=== PATIENT | female | born 1970 | race Caucasian/White ===

== ENCOUNTER → 2017-01-16 | Outpatient (CLI) | payer BC ==
[~2017-01-16] MED LIST: BCPILLS PO
--- NOTE | 2017-01-16 13:42 | MAMMOGRAPHY REPORT ---
BILATERAL DIGITAL SCREENING MAMMOGRAM TOMOSYNTHESIS WITH CAD: 01/16/2017 CLINICAL HISTORY: Routine screening. Patient has no complaints. TECHNIQUE: Breast tomosynthesis in addition to standard 2D mammography was performed. Current study was also evaluated with a Computer Aided Detection (CAD) system. COMPARISON: Comparison is made to exams dated: 01/12/2016 mammogram, 01/10/2015 mammogram, 01/04/2014 m ammogram, 01/08/2013 mammogram, 12/30/2012 mammogram, and 11/13/2011 mammogram - [facility] enter. BREAST COMPOSITION: There are scattered areas of fibroglandular density in both breasts. FINDINGS: Again noted is a stable asymmetry in the 12:00 middle to posterior right breast. No [place] mass, architectural distortion or cluster of microcalcifications is seen. IMPRESSION: ACR BI-RADS CATEGORY 1: NEGATIVE There is no mammographic evidence of malignancy. A 1 year screening mammogram is recommended. The pa tient will receive written notification of the results. Approximately 10% of breast cancers are not detected with mammography. A negative mammographic report should not delay biopsy if a clinically suggestive mass is present. Maria C Faulkner M.D. ay/:01/16/2017 09:39:45 Gis Analyst Developer: Mila BARCLAY(Francois)(Renny)([place]), [facility] letter sent: Normal 1/2 BI-RADS Code: ACR BI-RADS Category 1: Negative
== END | disposition home or self-care (01) ==
LOC: C.MAMM 08:50
PROVIDERS: ATTEND Obstetrics & Gynecology
DX: Z12.31 Encounter for screening mammogram for malignant neoplasm of breast (principal)

== ENCOUNTER → 2017-04-25 | Outpatient (CLI) | payer BC | END | disposition home or self-care (01) | LOC: C.PAPS 12:05 | PROVIDERS: ATTEND Obstetrics & Gynecology | DX: Z01.419 Encounter for gynecological examination (general) (routine) without abnormal findings (principal); R87.610 Atypical squamous cells of undetermined significance on cytologic smear of cervix (ASC-US) ==

== ENCOUNTER 2017-07-18 18:42 | Emergency (ER) | payer BC, OTHER ==
[~2017-07-18] VITALS: Ht 157.5 cm; Wt 62.4 kg
[2017-07-18 18:47] VITALS: Ht 157.5 cm; Wt 62.4 kg
[2017-07-18] MEDS ORDERED: IBUPROFEN 600 MG TAB ONE (20:42)
[2017-07-18 21:18] LABS: INFLUENZA B ANTIGEN Neg for Influ B (NEG)
[2017-07-18] MEDS ORDERED: ACET-1256 PO (21:21)
[2017-07-18] MEDS ORDERED: FLUT0.15 (21:21)
[2017-07-18 21:25] VITALS: TEMP 37.1
[2017-07-18] MEDS ORDERED: ACETAMINOPHEN 325 MG TAB PO STA (21:42)
[2017-07-18] MEDS ORDERED: SODIUM CHLORIDE 0.9% 1000ML 1,000 ML IV ONE (21:45)
--- NOTE | 2017-07-18 21:49 | EMERGENCY ROOM VISIT NOTE ---
History First contact with patient: 21:09 Chief Complaint: FLU LIKE SX Stated Complaint: FEVER, CHILLS, SWOLLEN GLANDS History of Present Illness The patient is a 47 year old female who presents to the Emergency Room with complaints of swollen lymph nodes, fever, body aches and headache for the last 4 days. The patient's fever was 104F. She saw her doctor this morning. He told her to wait it out until tomorrow morning. When the patient's fever increased, she called the on-call nurse, who advised her to come to the emergency department for evaluation and blood work. She denies any nausea or vomiting. She denies any chest pain or shortness of breath. Review of Systems 10 system review performed and negative unless noted in HPI or below Past Medical/Surgical History Medical Problems: (1) Hyperlipidemia Family History FH: cancer FH: gallbladder disease FH: hypertension Kidney disease Kidney stones Social History Smoking Status: Never Smoker Alcohol Use: occasionally Drug Use: none Marital Status: Housing Status: lives with family Occupation Status: employed Current/Historical Medications Scheduled Amoxicillin (Amoxil), 1 TAB PO TID Control Pills ( Control Pills), 1 TAB PO DAILY Fluticasone Propionate (Nasal) (Flonase Allergy Relief), 2 SPRAYS NA DAILY Scheduled PRN Acetaminophen (Tylenol), 1,000 MG PO Q6 PRN for Pain or Fever Physical Exam Vital Signs Date Time Temp Pulse Resp B/P (MAP) Pulse Ox O2 Delivery O2 Flow Rate FiO2 07/18/17 23:11 72 16 114/71 98 07/18/17 21:25 37.1 74 16 121/73 98 Room Air 07/18/17 18:47 37.5 102 17 136/88 96 Room Air Physical Exam VITALS: Vitals are noted on the nurse's note and reviewed by myself. Vital signs stable. GENERAL: 47-year-old female, mildly acutely ill in appearance., SKIN: The skin was without rashes, erythema, edema, or bruising. HEAD: Normocephalic atraumatic. EARS: External auditory canals clear, left tympanic membrane is bulging and erythematous. No effusion noted. Right tympanic membrane is also bulging. It is pearly lowery. No effusion. EYES: Pupils equal round and reactive to light and accommodation. Conjunctivae without injection, sclerae without icterus. Extraocular movements intact. NOSE: Patent, turbinates without inflammation or discharge. No sinus tenderness. MOUTH: Mucous membranes slightly dry.. Tonsils are not enlarged. Pharynx without erythema or exudate. Uvula midline. Airway patent. Tongue does not deviate. NECK: Supple without nuchal rigidity. Significant lymphadenopathy noted in the anterior cervical chain bilaterally. Cervical spine is nontender. No JVD. HEART: Regular rate and rhythm without murmurs gallops or rubs. LUNGS: Clear to auscultation bilaterally without wheezes, rales or rhonchi. No accessory muscle use. ABDOMEN: Positive bowel sounds x 4.Soft, nontender, without organomegaly. No guarding or rebound tenderness. MUSCULOSKELETAL: No muscle atrophy, erythema, or edema noted. Strength 5/5 throughout. NEURO: Patient was alert and oriented to person place and time. Normal sensation to touch. No focal neurological deficits. Medical Decision & Procedures ER Provider Diagnostic Interpretation: Chest x-ray IMPRESSION: No acute cardiopulmonary findings. Electronically signed by: Juan C Blunt M.D. 07/18/2017 10:23 PM Dictated Date/Time: 07/18/2017 10:22 PM The status of this report is Signed. Draft = Not yet reviewed or approved by Radiologist. Signed = Reviewed and approved by Radiologist. Laboratory Results 07/18/17 21:55 Red Blood Count 4.45, Mean Corpuscular Volume 89.4, Mean Corpuscular Hemoglobin 30.6, Mean Corpuscular Hemoglobin Concent 34.2, Mean Platelet Volume 10.6, Neutrophils (%) (Auto) 83.3, Lymphocytes (%) (Auto) 8.9, Monocytes (%) (Auto) 7.2, Eosinophils (%) (Auto) 0.1, Basophils (%) (Auto) 0.2, Neutrophils # (Auto) 11.61, Lymphocytes # (Auto) 1.24, Monocytes # (Auto) 1.00, Eosinophils # (Auto) 0.01, Basophils # (Auto) 0.03 07/18/17 21:55 Test 07/18/17 20:40 07/18/17 21:55 Influenza Type A Antigen Neg for Influ A (NEG) Influenza Type B Antigen Neg for Influ B (NEG) White Blood Count 13.93 K/uL (4.8-10.8) Red Blood Count 4.45 M/uL (4.2-5.4) Hemoglobin 13.6 g/dL (12.0-16.0) Hematocrit 39.8 % (37-47) Mean Corpuscular Volume 89.4 fL (80-100) Mean Corpuscular Hemoglobin 30.6 pg (25-34) Mean Corpuscular Hemoglobin Concent 34.2 g/dl (32-36) Platelet Count 254 K/uL (130-400) Mean Platelet Volume 10.6 fL (7.4-10.4) Neutrophils (%) (Auto) 83.3 % Lymphocytes (%) (Auto) 8.9 % Monocytes (%) (Auto) 7.2 % Eosinophils (%) (Auto) 0.1 % Basophils (%) (Auto) 0.2 % Neutrophils # (Auto) 11.61 K/uL (1.4-6.5) Lymphocytes # (Auto) 1.24 K/uL (1.2-3.4) Monocytes # (Auto) 1.00 K/uL (0.11-0.59) Eosinophils # (Auto) 0.01 K/uL (0-0.5) Basophils # (Auto) 0.03 K/uL (0-0.2) RDW Standard Deviation 42.0 fL (36.4-46.3) RDW Coefficient of Variation 12.9 % (11.5-14.5) Immature Granulocyte % (Auto) 0.3 % Immature Granulocyte # (Auto) 0.04 K/uL (0.00-0.02) Anion Gap 10.0 mmol/L (3-11) Est Creatinine Clear Calc Drug Dose 87.6 ml/min Estimated GFR () 120.1 Estimated GFR (Non- 103.7 BUN/Creatinine Ratio 11.0 (10-20) Calcium Level 9.1 mg/dl (8.5-10.1) Total Bilirubin 0.3 mg/dl (0.2-1) Aspartate Amino Transf (AST/SGOT) 13 U/L (15-37) Alanine Aminotransferase (ALT/SGPT) 20 U/L (12-78) Alkaline Phosphatase 64 U/L (45-117) Total Protein 7.6 gm/dl (6.4-8.2) Albumin 3.2 gm/dl (3.4-5.0) Globulin 4.4 gm/dl (2.5-4.0) Albumin/Globulin Ratio 0.7 (0.9-2) Human Chorionic Gonadotropin, Qual NEG (NEG) Medications Administered Medications (Trade) Dose Ordered Sig/Willian Route Start Time Stop Time Status Last Admin Dose Admin Ibuprofen (Motrin Tab) 600 mg STK-MED ONCE .ROUTE 07/18/17 20:42 07/18/17 20:43 DC 07/18/17 20:44 600 MG Acetaminophen (Tylenol Tab) 650 mg NOW STAT PO 07/18/17 21:42 07/18/17 21:44 DC 07/18/17 21:52 650 MG Sodium Chloride 1,000 ml @ 999 mls/hr Q1H1M ONCE IV 07/18/17 21:45 07/18/17 22:45 DC 07/18/17 21:53 999 MLS/HR Amoxicillin (Amoxil Cap) 500 mg NOW ONCE PO 07/18/17 22:45 07/18/17 22:46 DC 07/18/17 22:47 500 MG ED Course Patient was seen and examined Vital signs including blood pressure were reviewed medications list was verified with patient Labs were obtained, and a saline lock was established The patient was medicated with Motrin. She was also given Tylenol. She was hydrated with 1 L of normal saline. Imaging was performed and reviewed Upon reevaluation, the patient was feeling much better. We discussed the results of her workup. She voiced understanding. She was medicated with Amoxil one 500 mg by mouth I reviewed discharge instructions the patient. They voiced understanding and had no further questions. Medical Decision Differential diagnosis: Bronchitis, pneumonia, strep pharyngitis, viral pharyngitis, influenza , otitis media, other viral syndrome This patient is a 47-year-old female presents to the emergency department with high fever, body aches and swollen lymph nodes. On exam, there is no nuchal rigidity. I do not suspect meningitis. She does have a fairly erythematous and bulging left TM. She also had significant lymphadenopathy. She was borderline febrile. Her workup reveals leukocytosis. Chest x-ray is negative for pneumonia. She had good symptomatic relief in the emergency department. I believe she likely has a left otitis media. This will be treated with amoxicillin for 10 days. She was urged to follow up closely with her primary care physician. She agrees to return to the emergency department with any new or worsening symptoms. This chart was completed in part utilizing [employer] Speech Voice Recognition software. Attempts were made to minimize the grammatical errors, random word insertions, pronoun errors and incomplete sentences. Any formal questions or concerns about the content, text or information contained within the body of this dictation should be directly addressed to the provider for clarification. Medication Reconcilliation Current Medication List: was personally reviewed by me Blood Pressure Screening Patient's blood pressure: Normal blood pressure Impression Primary Impression: Left otitis media Departure Information Dispostion Home / Self-Care Condition GOOD Prescriptions Amoxicillin (AMOXIL) 500 Mg Tab 1 TAB PO TID for 10 Days, #30 TAB Prov: Jojo Nayak PA-C 07/18/17 Referrals Micheal Lopez Jr,D.O. (PCP) Patient Instructions ED Otitis Media Acute Adult, [facility] Additional Instructions You have been evaluated in the emergency department for headache, body aches and fever. On exam, it appears that you have a left-sided ear infection. Please take the entire course of antibiotics Ibuprofen 800 mg and/or Tylenol 1000 mg every 8 hours for pain and fever You may also alternate these medications for more effective pain relief: Ibuprofen --4 HRS--> Tylenol --4 HRS--> ibuprofen --4 HRS--> Tylenol .... It is important to stay well hydrated. Increase your fluid intake with water and sports drinks over the next several days. Please follow-up with your primary care physician within the next 3-5 days for recheck Please do not hesitate to return to the emergency department with any new, worsening or concerning symptoms. Work Instructions Return To Work: 2 days
[2017-07-18 22:11] LABS: BASO % 0.2 %; BASO ABS # 0.03 K/uL (0-0.2); EOS % 0.1 %; EOS ABS # 0.01 K/uL (0-0.5); HEMATOCRIT 39.8 % (37-47); HEMOGLOBIN 13.6 g/dL (12.0-16.0); IG# 0.04 K/uL (0.00-0.02); LYMPH % 8.9 %; LYMPH ABS # 1.24 K/uL (1.2-3.4); MEAN CELL VOLUME 89.4 fL (80-100); MEAN CORPUSCULAR HEMOGLOBIN 30.6 pg (25-34); MEAN CORPUSCULAR HGB CONC 34.2 g/dl (32-36); MEAN PLATELET VOLUME 10.6 fL (7.4-10.4); MONO % 7.2 %; NEUT % 83.3 %; NEUT ABS # 11.61 K/uL (1.4-6.5); PLATELET COUNT 254 K/uL (130-400); RED CELL DISTRIBUTION WIDTH CV 12.9 % (11.5-14.5); WHITE BLOOD COUNT 13.93 K/uL (4.8-10.8)
--- NOTE | 2017-07-18 22:24 | DIAGNOSTIC IMAGING REPORT ---
CHEST 2 VIEWS ROUTINE CLINICAL HISTORY: Fever. Cough. Lymphadenopathy. COMPARISON STUDY: Chest radiograph and chest CT January 03, 2016. FINDINGS: The lung volumes are normal. No pneumothorax or pleural effusion is present. Cardiac size is normal. Mediastinal contours are normal. There is no evidence for pulmonary edema. The appearance of the chest is unchanged. IMPRESSION: No acute cardiopulmonary findings. Electronically signed by: Juan C Blunt M.D. 07/18/2017 10:23 PM Dictated Date/Time: 07/18/2017 10:22 PM
[2017-07-18 22:29] LABS: ALBUMIN 3.2 gm/dl (3.4-5.0); CALCIUM 9.1 mg/dl (8.5-10.1); CREATININE 0.69 mg/dl (0.60-1.20); POTASSIUM 3.5 mmol/L (3.5-5.1)
[2017-07-18 22:32] LABS: TOTAL PROTEIN 7.6 gm/dl (6.4-8.2)
[2017-07-18] MEDS ORDERED: AMOXICILLIN 250 MG CAP PO ONE (22:45)
[2017-07-18] MEDS ORDERED: AMOX500T3 PO (22:57)
[2017-07-18 23:11] VITALS: BP 114/71; PULSE 72; O2SAT 98
== END 2017-07-18 23:12 | disposition home or self-care (01) ==
LOC: C.EDB 18:44 → C.EDC 23:12
DX: H66.92 Otitis media, unspecified, left ear (principal); E78.5 Hyperlipidemia, unspecified; Z84.1 Family history of disorders of kidney and ureter; Z82.49 Family history of ischemic heart disease and other diseases of the circulatory system; Z79.3 Long term (current) use of hormonal contraceptives

== ENCOUNTER → 2018-01-17 | Outpatient (CLI) | payer OTHER ==
[~2018-01-17] MED LIST changes: +ACET-1256 PO; +AMOX500T3 PO; +FLUT0.15
--- NOTE | 2018-01-17 14:37 | MAMMOGRAPHY REPORT ---
BILATERAL DIGITAL SCREENING MAMMOGRAM TOMOSYNTHESIS WITH CAD: 01/17/2018 CLINICAL HISTORY: Routine screening. Patient has no complaints. TECHNIQUE: The study was acquired using full field digital technology and interpreted from soft copy. Breast tomosynthesis in addition to standard 2D mammography was performed. Current study was also ev aluated with a Computer Aided Detection (CAD) system. COMPARISON: Comparison is made to exams dated: 01/16/2017 mammogram, 01/12/2016 mammogram, 01/10/2015 ma mmogram, 01/08/2013 mammogram, 12/30/2012 mammogram, and 11/13/2011 mammogram - [facility] nter. BREAST COMPOSITION: There are scattered areas of fibroglandular density in both breasts. FINDINGS: No suspicious masses, calcifications, or areas of architectural distortion are noted in either breast . There has been no significant interval change compared to prior exams. Benign-appearing nodular as ymmetry in the right superior breast at approximately 12:00 is stable compared to multiple prior exam s. IMPRESSION: ACR BI-RADS CATEGORY 2: BENIGN There is no mammographic evidence of malignancy. A 1 year screening mammogram is recommended.( 019) The patient will receive written notification of the results. Some breast cancers are not detected with mammography. A negative mammographic report should not liane y biopsy if a clinically suggestive mass is present. Sepideh Yepez M.D. /:01/17/2018 10:41:53 Pasteurizing Supervisor: Tiffany Du, [facility] letter sent: Normal 1/2 BI-RADS Code: ACR BI-RADS Category 2: Benign
== END | disposition home or self-care (01) ==
LOC: C.MAMM 10:14
DX: Z12.31 Encounter for screening mammogram for malignant neoplasm of breast (principal)

== ENCOUNTER 2020-07-29 21:44 | Observation (INO) ==
--- NOTE | 2020-07-29 21:54 | Emergency Department Note ---
Impression & Plan Acute cholecystitis, Abdominal pain, Cholelithiasis ED Provider Note NAME: RENE BOWLING AGE: 50 SEX: F : 1970 ARRIVES VIA: Walk-In INFORMANT: patient, ED PROVIDER(S): Gal Estrada MD Chief Complaint: Abdominal pain HPI: Patient does present with abdominal pain that G she describes in the upper abdomen that has been ongoing for approximate 3 to 4 hours. It is constant and strong in nature. The patient denies any alleviating symptoms. Palpation does make it worse. The patient has not had any vomiting. Patient did have a recent colonoscopy performed by Dr. Corbin early in the morning. She was told that there were no concerning findings but other than may be having some hemorrhoids that may have just been from her bowel prep. Patient denies fevers chills chest pains or shortness of breath. The patient denies any alcohol or tobacco use. Patient states that she did have a recent negative Covid test prior to her procedure. The patient did have the colonoscopy performed for preventative reasons given that she turned 50 colon cancer screening ROS: See HPI for pertinent positives and negatives. A total of 10 systems were reviewed and otherwise negative. Past medical history: See below Surgical history: See below Social history: See below Physical Exam: GENERAL: Uncomfortable in appearance. Wearing a mask. EYE EXAM: Normal conjunctiva. PERRL, no anisocoria and EOM's grossly intact w/o pain. NECK: Supple, no nuchal rigidity, no adenopathy, non-tender. No signs of meningismus. LUNGS: Clear to auscultation. Normal chest wall mechanics. HEART: NSR, no MRG. ABDOMEN: Abdomen soft, epigastric and right upper quadrant discomfort without peritonitis, normo-active bowel sounds, no masses, no rebound or guarding. BACK: No CVA TTP. SKIN: No rashes and no bruising. UPPER EXTREMITIES: Upper extremities are grossly normal. LOWER EXTREMITIES: Grossly normal, no edema. NEURO EXAM: A&O x3, cranial nerves II-XII grossly intact, normal speech, moves all 4 extremities on command w/o issue. Differential diagnoses: Appendicitis, ovarian cyst, ovarian torsion, ectopic , TOA, PID, infections, diverticulitis, UTI, obstruction, mesenteric ischemia, aortic pathology, inflammatory bowel disease, renal colic, PUD, pancreatitis, biliary pathology, hernia, volvulus, constipation, as well as other pathologies. Course: Patient was seen and evaluated the bedside. Full history physical exam was performed. EKG: None Imaging Studies: Radiology results as stated below per my review in the radiologist's interpretation: CT abdomen pelvis with IV contrast Cholelithiasis. No radiographic evidence of pancreatitis. Kidneys are within normal limits. Fat-containing umbilical and ventral hernias. No colitis or appendicitis. Nonobstructive bowel gas pattern. Cardiac monitoring: An order was placed for continuous cardiac monitoring. The monitor shows a rate of 88 with sinus rhythm. MDM: Patient does present with concern for abdominal pain. The patient did have a recent colonoscopy performed earlier today. The patient does have upper abdominal pain. Blood work is obtained with a CT of the abdomen pelvis. The patient was given IV fluids antiemetics and pain medication. Patient did have improvement in her symptoms stating she still had some mild discomfort. Patient with a white count of 11 with a normal hemoglobin. The patient's kidney function is unremarkable. Urinalysis does show bacteria but the patient does have numerous epithelial cells. Patient never complained of any urinary symptoms. Patient has upper abdominal discomfort. No signs of any pyelonephritis or kidney stones based on CAT scan read. Patient did have improvement in symptoms but the patient still has some persistent epigastric and right upper quadrant pain. Patient has stated that some of her pain may have begun after eating some [place] food around midday. Given the CAT scan did show concern for cholelithiasis with upper ab pain, a right upper quadrant ultrasound was ordered. Patient was signed out to Dr. Santo pending reevaluation and disposition upon completion of the right upper quadrant ultrasound. Past Med/Surg History Medical History Hyperlipidemia No known health problems Surgical History History of bunionectomy of left great toe History of bunionectomy of right great toe x2 History of placement of ear tubes S/P tonsillectomy and adenoidectomy Family History Sister Ovarian cancer Father Pancreatic cancer Other No family history of adverse response to anesthesia Denies family history of Breast cancer Colorectal cancer Social History Smoking Status: Never smoker Second Hand Exposure: No; Hx Alcohol Use: Yes Alcohol type: wine Hx Substance Use: No Preferred Language: Bahraini Communication Ability: Effective Gre[employer] Marker Required: No Beliefs That Will Affect Care: None Current Living Situation: Spouse Other Information That Helps Us Care for You: No Feels Safe at Home: Yes Assistive Devices: None Allergies Allergies Allergy/AdvReac Type Severity Reaction Status Date / Time No Known Drug Allergies Allergy Verified 07/29/20 09:41 Home Meds Home Medications Medication Instructions Recorded Confirmed multivitamin 1 tab PO QAM 03/16/19 07/29/20 biotin 1 mg PO QAM 07/20/20 07/29/20 desog-e.estradiol/e.estradiol 1 tab PO QAM 07/20/20 07/29/20 fluticasone propionate [Flonase 1 spray INTRANASAL BID 07/20/20 07/29/20 Allergy Relief] wblnsge-jcibwqrqogbzw-uohtnlaa 1 tab PO Q6H PRN 07/29/20 07/29/20 [Excedrin Migraine] calcium carbonate-vitamin D3 1 cap PO DAILY 07/29/20 07/29/20 [Calcium 600 + D(3)] Results & Data (ED) Vital Signs Vital Signs - 24 hr 07/29/20 21:45 07/29/20 21:56 07/29/20 23:23 Temperature 36.3 C L Temperature Source Temporal Artery Scan Pulse Rate 88 Pulse Rate [Finger] 86 Respiratory Rate 20 20 Respiratory Effort / Characteristics Non-Labored Spontaneous Respiratory Depth Normal Respiratory Pattern Regular Blood Pressure 158/99 H Blood Pressure [Right Arm] 157/97 H Blood Pressure Mean 118 Blood Pressure Mean [Right Arm] 117 Blood Pressure Position [Right Arm] Lying Pulse Oximetry 98 99 100 Oxygen Delivery Method Room Air Room Air Room Air Sepsis Recent Fever Within 48 Hours No Sepsis New/Unexplained Change in Mental Status N/A Sepsis Action Taken by Nursing No Action Required 07/30/20 00:07 07/30/20 01:46 07/30/20 01:47 Temperature Temperature Source Pulse Rate 81 Pulse Rate [Finger] 84 75 Respiratory Rate 20 18 16 Respiratory Effort / Characteristics Non-Labored Respiratory Depth Normal Respiratory Pattern Regular Blood Pressure 156/92 H Blood Pressure [Right Arm] 154/104 H 156/92 H Blood Pressure Mean 113 Blood Pressure Mean [Right Arm] 120 113 Blood Pressure Position [Right Arm] Lying Pulse Oximetry 98 96 96 Oxygen Delivery Method Room Air Room Air Sepsis Recent Fever Within 48 Hours Sepsis New/Unexplained Change in Mental Status Sepsis Action Taken by Nursing 07/30/20 02:00 07/30/20 02:30 07/30/20 03:00 Temperature Temperature Source Pulse Rate 85 91 H 78 Pulse Rate [Finger] Respiratory Rate 16 16 18 Respiratory Effort / Characteristics Respiratory Depth Respiratory Pattern Blood Pressure 139/97 156/96 H 149/96 H Blood Pressure [Right Arm] Blood Pressure Mean 111 116 113 Blood Pressure Mean [Right Arm] Blood Pressure Position [Right Arm] Pulse Oximetry 97 98 96 Oxygen Delivery Method Sepsis Recent Fever Within 48 Hours Sepsis New/Unexplained Change in Mental Status Sepsis Action Taken by Skilled Nursing Medications Current Medication List: was personally reviewed by me Laboratory Data Attestation: I reviewed the patient's lab results. Result diagrams: 07/29/20 22:46 07/29/20 22:46 Lab Results 07/29/20 07/29/20 07/29/20 Range/Units 22:46 22:46 23:09 WBC 11.13 H (4.8-10.8) K/uL RBC 4.12 L (4.2-5.4) M/uL Hgb 12.6 (12.0-16.0) g/dL POC Hgb 10.9 L (12.0-16.0) g/dl Hct 37.4 (37-47) % POC Hct 32 L (37-47) % MCV 90.8 (80-100) fL MCH 30.6 (25-34) pg MCHC 33.7 (32-36) g/dL RDW Std Deviation 42.2 (36.4-46.3) fL RDW Coeff of Ella 12.6 (11.5-14.5) % Plt Count 275 (130-400) K/uL MPV 10.8 H (7.4-10.4) fL Immature Gran % (Auto) 0.1 % Neut % (Auto) 67.6 % Lymph % (Auto) 23.4 % [place] % (Auto) 6.6 % Eos % (Auto) 2.1 % Baso % (Auto) 0.2 % Neut # (Auto) 7.54 H (1.4-6.5) K/uL Lymph # (Auto) 2.60 (1.2-3.4) K/uL [place] # (Auto) 0.73 H (0.11-0.59) K/uL Eos # (Auto) 0.23 (0-0.5) K/uL Baso # (Auto) 0.02 (0-0.2) K/uL Immature Gran # (Auto) 0.01 (0.00-0.02) K/uL POC Sodium 137 (135-144) mmol/L Sodium 141 (136-145) mmol/L POC Potassium 4.1 (3.3-5.0) mmol/L Potassium 3.6 (3.5-5.1) mmol/L POC Chloride 109 (101-112) mmol/L Chloride 109 H (98-107) mmol/L Carbon Dioxide 25 (21-32) mmol/L POC Total CO2 27 (24-31) mmol/L Anion Gap 8.0 (3-11) POC Anion Gap 7.0 L (16-25) mmol/L POC BUN 14 (7-18) mg/dl BUN 12 (7-18) mg/dl Creatinine 0.76 (0.6-1.2) mg/dl POC Creatinine 0.6 (0.6-1.3) mg/dl Est Cr Clr Drug Dosing 78.2 ml/min Est GFR ( Amer) 106.0 Est GFR (Non-Af Amer) 91.5 BUN/Creatinine Ratio 16.3 (10-20) Glucose 105 H (70-99) mg/dl POC Glucose (other) 106 H (70-99) mg/dl Calcium 8.7 (8.5-10.1) mg/dl POC Ioniz Calcium Bean 1.06 L (1.12-1.32) mmol/l Total Bilirubin 0.4 (0.2-1) mg/dl AST 11 L (15-37) U/L ALT 18 (12-78) U/L Alkaline Phosphatase 60 (45-117) U/L Total Protein 6.8 (6.4-8.2) gm/dl Albumin 3.2 L (3.4-5.0) gm/dl Globulin 3.6 (2.5-4.0) gm/dl Albumin/Globulin Ratio 0.9 (0.9-2) Lipase 106 (73-393) U/L Urine Color Urine Appearance (Clear) Urine pH (4.5-7.5) Ur Specific [place] (1.000-1.030) Urine Protein (Negative) Urine Glucose (UA) (Negative) Urine Ketones (Negative) Urine Blood (Negative) Urine Nitrite (Negative) Urine Bilirubin (Negative) Urine Urobilinogen (Negative) Ur Leukocyte Esterase (Negative) Urine WBC (Auto) (0-5) /hpf Urine RBC (Auto) (0-4) /hpf U Hyaline Cast (Auto) (0-5) /lpf U Epithel Cells (Auto) (0-5) /lpf Urine Bacteria (Auto) (Negative) 07/29/20 Range/Units 23:33 WBC (4.8-10.8) K/uL RBC (4.2-5.4) M/uL Hgb (12.0-16.0) g/dL POC Hgb (12.0-16.0) g/dl Hct (37-47) % POC Hct (37-47) % MCV (80-100) fL MCH (25-34) pg MCHC (32-36) g/dL RDW Std Deviation (36.4-46.3) fL RDW Coeff of Ella (11.5-14.5) % Plt Count (130-400) K/uL MPV (7.4-10.4) fL Immature Gran % (Auto) % Neut % (Auto) % Lymph % (Auto) % [place] % (Auto) % Eos % (Auto) % Baso % (Auto) % Neut # (Auto) (1.4-6.5) K/uL Lymph # (Auto) (1.2-3.4) K/uL [place] # (Auto) (0.11-0.59) K/uL Eos # (Auto) (0-0.5) K/uL Baso # (Auto) (0-0.2) K/uL Immature Gran # (Auto) (0.00-0.02) K/uL POC Sodium (135-144) mmol/L Sodium (136-145) mmol/L POC Potassium (3.3-5.0) mmol/L Potassium (3.5-5.1) mmol/L POC Chloride (101-112) mmol/L Chloride (98-107) mmol/L Carbon Dioxide (21-32) mmol/L POC Total CO2 (24-31) mmol/L Anion Gap (3-11) POC Anion Gap (16-25) mmol/L POC BUN (7-18) mg/dl BUN (7-18) mg/dl Creatinine (0.6-1.2) mg/dl POC Creatinine (0.6-1.3) mg/dl Est Cr Clr Drug Dosing ml/min Est GFR ( Amer) Est GFR (Non-Af Amer) BUN/Creatinine Ratio (10-20) Glucose (70-99) mg/dl POC Glucose (other) (70-99) mg/dl Calcium (8.5-10.1) mg/dl POC Ioniz Calcium Bean (1.12-1.32) mmol/l Total Bilirubin (0.2-1) mg/dl AST (15-37) U/L ALT (12-78) U/L Alkaline Phosphatase (45-117) U/L Total Protein (6.4-8.2) gm/dl Albumin (3.4-5.0) gm/dl Globulin (2.5-4.0) gm/dl Albumin/Globulin Ratio (0.9-2) Lipase (73-393) U/L Urine Color Yellow Urine Appearance Cloudy A (Clear) Urine pH 7.0 (4.5-7.5) Ur Specific [place] 1.016 (1.000-1.030) Urine Protein Negative (Negative) Urine Glucose (UA) Negative (Negative) Urine Ketones Trace H (Negative) Urine Blood Trace H (Negative) Urine Nitrite Negative (Negative) Urine Bilirubin Negative (Negative) Urine Urobilinogen Negative (Negative) Ur Leukocyte Esterase 1+ H (Negative) Urine WBC (Auto) 5-10 H (0-5) /hpf Urine RBC (Auto) 0-4 (0-4) /hpf U Hyaline Cast (Auto) 1-5 (0-5) /lpf U Epithel Cells (Auto) >30 H (0-5) /lpf Urine Bacteria (Auto) 1+ H (Negative) Administered Medications Fluticasone Propionate (Fluticasone Propionate Na Spr 16 Gm Btl) 1 sprays NA BID MULUGETA Stop: 08/29/20 08:59 Last Admin: 07/30/20 07:22 Dose: 1 sprays Documented by: [id number] Cefoxitin Sodium 2,000 mg/ (Dextrose) 60 mls @ 100 mls/hr IV Q6H MULUGETA Stop: 08/09/20 07:59 Last Infusion: 07/30/20 15:10 Dose: 0 mls/hr Documented by: [id number] Admin: 07/30/20 14:34 Dose: 100 mls/hr Documented by: [id number] Infusion: 07/30/20 08:00 Dose: 0 mls/hr Documented by: [id number] Admin: 07/30/20 07:21 Dose: 100 mls/hr Documented by: [id number] Lactated Ringer's (Lr) 1,000 mls @ 75 mls/hr IV .[id number] [facility] Stop: 08/29/20 03:14 Last Admin: 07/30/20 17:04 Dose: 75 mls/hr Documented by: [id number] Infusion: 07/30/20 17:04 Dose: 75 mls/hr Documented by: [id number] Admin: 07/30/20 05:03 Dose: 75 mls/hr Documented by: [id number] Miscellaneous (Oral Contraceptive~Order Awaiting Action) 1 ea N/A QS [facility] Stop: 08/29/20 07:59 Last Admin: 07/30/20 17:53 Dose: Not Given Documented by: [id number] Admin: 07/30/20 07:22 Dose: Not Given Documented by: [id number] Morphine Sulfate (Morphine Sulfate 2 Mg/Ml Carp) 2 mg IV Q3H PRN PRN Reason: Pain Stop: 08/13/20 03:05 Last Admin: 07/30/20 06:03 Dose: 2 mg Documented by: [id number] Ondansetron HCl (Ondansetron Inj 2 Mg/Ml 2 Ml Vial) 4 mg IV Q6H MULUGETA Stop: 08/29/20 03:14 Last Admin: 07/30/20 14:34 Dose: 4 mg Documented by: [id number] Admin: 07/30/20 07:21 Dose: 4 mg Documented by: [id number] Oxycodone/Acetaminophen (Oxycodone/Acetaminophen 5mg/325mg Tab) 1 tab PO Q4H PRN PRN Reason: Pain Stop: 08/13/20 15:13 Last Admin: 07/30/20 17:03 Dose: 1 tab Documented by: [id number] Discontinued Medications Cefoxitin Sodium (Cefoxitin 2000mg/60 Ml D5w) 2,000 mg IV ONE STA Stop: 07/30/20 02:54 Last Admin: 07/30/20 03:03 Dose: 2,000 mg Documented by: [id number] Cosigned by: [id number] Sodium Chloride (Nss 1000ml) 1,000 mls @ 999 mls/hr IV .Q1H1M ONE Stop: 07/29/20 22:55 Last Infusion: 07/29/20 23:18 Dose: 0 mls/hr Documented by: [id number] Admin: 07/29/20 22:17 Dose: 999 mls/hr Documented by: [id number] Sodium Chloride (Nss) 500 mls @ 999 mls/hr IV .Q31M ONE Stop: 07/30/20 02:25 Last Infusion: 07/30/20 02:20 Dose: 0 mls/hr Documented by: [id number] Cosigned by: [id number] Admin: 07/30/20 02:01 Dose: 999 mls/hr Documented by: [id number] Cosigned by: [id number] Ioversol (Ioversol 100ml) 94 ml IV ONCE ONE Stop: 07/29/20 23:29 Last Admin: 07/29/20 23:29 Dose: 94 ml Documented by: [id number] Lidocaine/Epinephrine (Lidocaine/Epinephrine 1% 20 Ml Vial) Confirm Administered Dose 20 ml .ROUTE .STK-MED ONE Stop: 07/30/20 11:37 Last Admin: 07/30/20 13:13 Dose: 12 ml Documented by: [id number] Morphine Sulfate (Morphine Sulfate 4 Mg/Ml 1 Ml Carp\Vial) 4 mg IV NOW STA Stop: 07/29/20 21:56 Last Admin: 07/29/20 22:17 Dose: 4 mg Documented by: [id number] Morphine Sulfate (Morphine Sulfate 4 Mg/Ml 1 Ml Carp\Vial) 4 mg IV NOW STA Stop: 07/30/20 00:00 Last Admin: 07/30/20 00:05 Dose: 4 mg Documented by: [id number] Cosigned by: [id number] Ondansetron HCl (Ondansetron Inj 2 Mg/Ml 2 Ml Vial) 4 mg IV NOW STA Stop: 07/29/20 21:56 Last Admin: 07/29/20 22:17 Dose: 4 mg Documented by: [id number] Ondansetron HCl (Ondansetron Inj 2 Mg/Ml 2 Ml Vial) 4 mg IV NOW STA Stop: 07/30/20 01:56 Last Admin: 07/30/20 02:01 Dose: 4 mg Documented by: [id number] Cosigned by: [id number] Discharge Plan Visit Data Chief Complaint: Abdominal Pain Stated Complaint: COLONOSCOPY TODAY; ABDOMINAL PAIN ED Provider: April Santo Discharge Problem: Acute cholecystitis, Abdominal pain, Cholelithiasis Patient Disposition: Admitted As Inpatient Condition: Good Discharge Instructions Interventions: ED Discharge Assessment Last Done: 07/30/20 04:33 Discharge Problem: Abdominal pain Qualifiers: Abdominal location: upper abdomen, unspecified Qualified Code(s): R10.10 - Upper abdominal pain, unspecified Cholelithiasis Qualifiers: Cholelithiasis location: gallbladder Cholecystitis presence: without cholecystitis Biliary obstruction: without biliary obstruction Qualified Code(s): K80.20 - Calculus of gallbladder without cholecystitis without obstruction
[2020-07-29] MEDS ORDERED: SODIUM CHLORIDE 0.9% 1000ML 1,000 ML IV ONE (21:55)
[2020-07-29] MEDS ORDERED: MoRPHine SULFATE 4 MG/ML 1 ML CARP\\VIAL IV STA ×2 (21:55→23:59)
[2020-07-29] MEDS ORDERED: ONDANSETRON INJ 2 MG/ML 2 ML VIAL IV STA (21:55)
[2020-07-29 23:03] LABS: Basophils # (auto) 0.02 K/uL (0-0.2); Basophils % (auto) 0.2 %; Eosinophils # (auto) 0.23 K/uL (0-0.5); Eosinophils % (auto) 2.1 %; Hematocrit (blood only) 37.4 % (37-47); Hemoglobin 12.6 g/dL (12.0-16.0); Immature Granulocytes # (auto) 0.01 K/uL (0.00-0.02); Immature Granulocytes % (auto) 0.1 %; Lymphocytes % (auto) 23.4 %; Mean Corpuscular Hemoglobin 30.6 pg (25-34); Mean Corpuscular Hgb Conc 33.7 g/dL (32-36); Mean Corpuscular Volume 90.8 fL (80-100); Mean Platelet Volume 10.8 fL (7.4-10.4); Monocytes # (auto) 0.73 K/uL (0.11-0.59); Monocytes % (auto) 6.6 %; Neutrophils # (auto) 7.54 K/uL (1.4-6.5); Neutrophils % (auto) 67.6 %; Platelet Count 275 K/uL (130-400); RDW Coefficient of Variation 12.6 % (11.5-14.5); RDW Standard Deviation 42.2 fL (36.4-46.3); Red Blood Count 4.12 M/uL (4.2-5.4); White Blood Count 11.13 K/uL (4.8-10.8)
[2020-07-29 23:22] LABS: iSTAT Creatinine 0.6 mg/dl (0.6-1.3); iSTAT Hemoglobin 10.9 g/dl (12.0-16.0); iSTAT Ionized Calcium 1.06 mmol/l (1.12-1.32); iSTAT Potassium 4.1 mmol/L (3.3-5.0)
[2020-07-29 23:23] LABS: Albumin Level 3.2 gm/dl (3.4-5.0); BUN Creatinine Ratio 16.3 (10-20); Calcium 8.7 mg/dl (8.5-10.1); Creatinine Clr Calc Pharmacy 78.2 ml/min; Est GFR (Non-African American) 91.5; Potassium 3.6 mmol/L (3.5-5.1)
[2020-07-29 23:26] LABS: Albumin Globulin Ratio 0.9 (0.9-2); Bilirubin,Total 0.4 mg/dl (0.2-1); Globulin 3.6 gm/dl (2.5-4.0); Total Protein 6.8 gm/dl (6.4-8.2)
[2020-07-29] MEDS ORDERED: IOVERSOL 100ml IV ONE (23:28)
[2020-07-29 23:45] LABS: Appearance Urine Cloudy (Clear); Bacteria Urine Automated 1+ (Negative); Bilirubin Urine Negative (Negative); Blood Urine Trace (Negative); Color Urine Yellow; Epithelial Cell Urine Auto >30 /lpf (0-5); Glucose Urine UA Negative (Negative); Ketones Urine Trace (Negative); Leukocyte Esterase Urine 1+ (Negative); Nitrite Urine Negative (Negative); Protein Urine Negative (Negative); RBC Urine Automated 0-4 /hpf (0-4); Specific Gravity Urine 1.016 (1.000-1.030); Urobilinogen Urine Negative (Negative)
[2020-07-30] MEDS ORDERED: ONDANSETRON INJ 2 MG/ML 2 ML VIAL IV STA (01:55)
[2020-07-30] MEDS ORDERED: SODIUM CHLORIDE 0.9% 500 ML IV ONE (01:55)
--- NOTE | 2020-07-30 01:57 | Emergency Department Note ---
ED Visit Note This case was signed out to me at change of shift awaiting ultrasound of the right upper quadrant. 0150: I evaluated the patient at this time, she was pale and diaphoretic feeling as if she were going to vomit. She was placed back on the campus monitor and I ordered 4 mg of IV Zofran and a 500 cc bolus of saline. I reviewed her ultrasound at this time and she has evidence of acute cholelithiasis with some pericholecystic fluid. We are awaiting the stat rad read. Ultrasound right upper quadrant:as per Stat Rad Cholelithiasis. Gallbladder wall measures between 1.4 and 5.3 mm in some regions with some edema. Positive sonographic Wills sign. Consider cholecystitis in the appropriate clinical setting. No biliary ductal dilatation. 0215: I reevaluated the patient at this time and the nausea has subsided somewhat. I reviewed the results of the ultrasound with her. I will contact general surgery. 0225: I spoke with Keyur Wu PA-C. He will evaluate the patient. . : Abdominal pain Qualifiers: Abdominal location: upper abdomen, unspecified Qualified Code(s): R10.10 - Upper abdominal pain, unspecified Cholelithiasis Qualifiers: Cholelithiasis location: gallbladder Cholecystitis presence: without cholecystitis Biliary obstruction: without biliary obstruction Qualified Code (s): K80.20 - Calculus of gallbladder without cholecystitis without obstruction
--- NOTE | 2020-07-30 03:01 | History & Physical Report ---
Date of Service July 30, 2020 Assessment & Plan (1) Cholelithiasis: The patient the patient has considerable tenderness with palpation of the right upper quadrant. We therefore admit her to the hospital and proceed as follows: We will keep her n.p.o. Provide hydration with IV fluids Provide analgesics Provide antiemetics Administer antibiotics in the form of cefoxitin We will obtain a chest x-ray We will obtain an EKG We will tentatively plan on cholecystectomy pending Dr. Brady's review of this case. We will use SCDs only for DVT prevention. We will add chemical means once any surgical procedures are completed. Admission and Anticipated Discharge Date Admission Date: History of Present Illness Chief Complaint: Abdominal pain Primary Care Provider: Micheal Lopez Jr, DO This is a 50-year-old female who was in her usual state of health until earlier last evening she developed abdominal pain that began in the epigastric region and has subsequently shifted primarily to the right upper quadrant. The patient notes that yesterday she underwent an uneventful colonoscopy.Records were reviewed and her colonoscopy showed only internal hemorrhoids. No biopsies were taken or polyps removed.She subsequently began eating solid foods without apparent difficulty however proximally 1 to 2 hours after her evening meal her abdominal pain began. She does note the pain was relieved somewhat with pain medications administered in the emergency department and no provocative factors were noted. The pain does not radiate to her shoulder.She did report some nausea without vomiting. She has not had any diarrhea. No fevers, shakes, chills were noted. In the emergency department she underwent a CT scan of the abdomen that showed cholelithiasis. A gallbladder ultrasound revealed cholelithiasis with gallbladder wall thickening as well as gallbladder wall edema. No biliary ductal dilatation was noted.Her platelet count was noted to be within normal range. Chemistry profile showed sodium, potassium, BUN, and creatinine were all within the normal range. There is no elevation noted in her LFTs or lipase. Patient did undergo a Covid test prior to colonoscopy which was noted to be negative.Urine test is noted to be negative. Patient notes that when she is feeling well she is quite active. She says that she can ambulate up steps and can even walk a mile without any chest pain or shortness of breath. She is a lifetime non-smoker. At the time of my exam she was in no distress but did have discomfort in the right upper quadrant with palpation of her abdomen. Allergies Allergy/AdvReac Type Severity Reaction Status Date / Time No Known Drug Allergies Allergy Verified 07/29/20 09:41 Home Medications Medication Instructions Recorded Confirmed Type multivitamin 1 tab PO QAM 03/16/19 07/29/20 History biotin 1 mg PO QAM 07/20/20 07/29/20 History desog-e.estradiol/e.estradiol 1 tab PO QAM 07/20/20 07/29/20 History fluticasone propionate [Flonase 1 spray INTRANASAL BID 07/20/20 07/29/20 History Allergy Relief] dvgvtgu-clcrejhvhnifx-kkvnmcww 1 tab PO Q6H PRN 07/29/20 07/29/20 History [Excedrin Migraine] calcium carbonate-vitamin D3 1 cap PO DAILY 07/29/20 07/29/20 History [Calcium 600 + D(3)] Past Med/Surg History Medical History Hyperlipidemia No known health problems Surgical History History of bunionectomy of left great toe History of bunionectomy of right great toe x2 History of placement of ear tubes S/P tonsillectomy and adenoidectomy Family History Sister Ovarian cancer Father Pancreatic cancer Other No family history of adverse response to anesthesia Denies family history of Breast cancer Colorectal cancer Social History Smoking Status: Never smoker Second Hand Exposure: No; Hx Alcohol Use: Yes Alcohol type: wine Hx Substance Use: No Preferred Language: [place] Communication Ability: Effective Assistant Analyst Required: No Beliefs That Will Affect Care: None Current Living Situation: Spouse Other Information That Helps Us Care for You: No Feels Safe at Home: Yes Assistive Devices: None Review of Systems Constitutional: no fever and no chills Eyes: no diplopia Ear, Nose, Mouth, Throat: no ear pain Respiratory: no cough and no dyspnea Cardiovascular: no chest pain Gastrointestinal: + abdominal pain and + nausea; no vomiting Genitourinary: no dysuria Musculoskeletal: no back pain Integumentary: no rash Neurologic: no localized weakness Physical Exam Constitutional: well developed and well nourished; no acute distress Eyes: no conjunctival abnormality ENMT: Ears: no hearing impairment Neck: trachea midline Respiratory: normal respiratory effort, lungs clear to auscultation Cardiovascular: Rate/Rhythm: regular rate and regular rhythm Gastrointestinal (Abdomen): Percussion/Palpation: + abdomen tender (Pain with palpation in the right upper quadrant. Wills sign is noted to b) and abdomen soft Musculoskeletal: No calf tenderness Skin: no rashes, warm and dry Neurologic: moves all extremities Psychiatric: A+Ox3, euthymic affect Results & Data Results & Data ([facility]) Vital Signs (Past 12 Hours) Vital Signs Temp Pulse Pulse Resp BP BP Pulse Ox 07/30/20 01:46 75 18 156/92 H 96 07/30/20 00:07 84 20 154/104 H 98 07/29/20 23:23 86 20 157/97 H 100 07/29/20 21:56 99 07/29/20 21:45 36.3 C L 88 20 158/99 H 98 Supervising Physician Co-Signing Physician Notes As per Keyur Campos physician financial services assistant First episode for Alisha regarding her gallbladder issues she did state that she has had some intolerance of CABG in related foods from past mother likely had he r gallbladder removed She is resting comfortably although still has some epigastric fullness abdominal exam is negative she does an umbilical hernia which off-and-on is symptomatic we may or may not repair at the time of surgery and this was explained to her rest abdominal exam is negative some right upper quadrant guarding We will proceed with surgery today and risks and complications have been explained to her including converting to an open procedure Also discussed with her the anticipated recovery time from surgery All questions were answered PG Care Time/CCT Total # of Minutes Spent Total Time Spent with Patient: Total time spent is greater than 50% in coordination of care (as documented) at patient's floor/unit and/or counseling patient: Coding Level of Care Code 80328 OBS Care - Level 3 Diagnoses Cholelithiasis K80.20 Biliary obstruction: without biliary obstruction Cholecystitis presence: without cholecystitis Cholelithiasis location: gallbladder (1) Cholelithiasis Biliary obstruction: without biliary obstruction Cholecystitis presence: without cholecystitis Cholelithiasis location: gallbladder Qualified Code(s): K80.20 - Calculus of gallbladder without cholecystitis without obstruction
[2020-07-30] MEDS ORDERED: MoRPHine SULFATE 2 MG/ML CARP IV PRN (03:06)
[2020-07-30] MEDS: LACTATED RINGER'S 1,000 ML IV SCH ×2 (05:03→17:04)
[2020-07-30] MEDS: cefOXitin 2,000 MG in DEXTROSE 5% 50 ML IV SCH ×3 (07:21→20:07)
[2020-07-30] MEDS: ONDANSETRON INJ 2 MG/ML 2 ML VIAL IV SCH ×3 (07:21→20:08)
[2020-07-30] MEDS: FLUTICASONE PROPIONATE NA SPR 16 GM BTL SCH ×2 (07:22→20:08)
--- NOTE | 2020-07-30 07:44 | Ultrasound Report ---
ULTRASOUND RIGHT UPPER QUADRANT ABDOMEN CLINICAL HISTORY: Right upper quadrant abdominal pain. COMPARISON STUDY: Abdominal CT dated 07/29/2020 TECHNIQUE: Real-time, grayscale, and color flow sonography of the right upper quadrant of the abdomen was performed. Images are reviewed in the transverse and longitudinal planes. FINDINGS: Liver: The liver is normal in size and echotexture. There is no intrahepatic biliary ductal dilatatio n. The main portal vein is patent. Gallbladder: There are numerous shadowing calcified gallstones. The gallbladder is distended. The gal lbladder wall is mildly thickened and edematous measuring up to 5 mm. Trace pericholecystic fluid is identified. A sonographic Wills's sign is reportedly present. The common bile duct measures up to 0. 5 cm in diameter. Pancreas: Visualized portions of the pancreatic head and body are normal in appearance. The splenic v ein is patent. Right kidney: Survey images of the right kidney demonstrate normal size and echotexture. There is no hydronephrosis. Ascites: None. IMPRESSION: 1. Cholelithiasis with sonographic evidence of acute cholecystitis. Surgical consultation is advised. 2. There is no intra or extrahepatic biliary ductal dilatation. ACT 112: Negative or not required by law. Electronically signed by: Mumtaz Juárez M.D. 07/30/2020 7:42 AM
--- NOTE | 2020-07-30 07:49 | CT Scan Report ---
CT SCAN OF THE ABDOMEN AND PELVIS WITH IV CONTRAST CLINICAL HISTORY: Right-sided abdominal pain. Recent colonoscopy. COMPARISON STUDY: Pelvic ultrasound dated 10/30/2019. TECHNIQUE: Following the IV administration of 94 cc of Optiray 320, CT scan of the abdomen and pelvi s is performed from the lung bases to the proximal femora. Images are reviewed in the axial, sagittal , and coronal planes. IV contrast was administered without complication. A dose lowering technique wa s utilized adhering to the principles of ALARA. CT DOSE: 319.35 mGy.cm FINDINGS: Lung bases: The heart is normal in size and without pericardial effusion. The lung bases are clear no ting dependent atelectasis. Liver: The contrast-enhanced liver is normal in size, contour, and attenuation. There is mild intrahe patic biliary ductal dilatation. The hepatic veins and portal veins are patent. Gallbladder: There are numerous gallstones. The gallbladder wall appears mildly thickened and there i s faint pericholecystic infiltration. Spleen: Normal in size and attenuation. Pancreas: Unremarkable. Adrenal glands: Unremarkable. Kidneys: The contrast enhanced kidneys are normal in size and without hydronephrosis. The kidneys enh ance and excrete symmetrically. Abdominal vasculature: The abdominal aorta is normal in course and caliber. Bowel: There is no bowel obstruction. The appendix is well-visualized and normal. Peritoneum: There is no intraperitoneal free air or abdominal ascites. There are fat-containing umbil ical and supraumbilical hernias. Lymphadenopathy: None. Pelvic viscera: The the bladder wall appears thickened and there is pericystic inflammation. There is excreted contrast within the bladder lumen. The uterus and adnexa are normal as visualized. Skeletal structures: No lytic or blastic lesions are seen. IMPRESSION: 1. Cholelithiasis with findings suggestive of acute cholecystitis. Correlation with a right upper suki drant ultrasound is recommended for further assessment. 2. There is mild intrahepatic biliary ductal dilatation. 3. The bladder wall appears mildly thickened and there is minimal pericholecystic infiltration. Corre late with urinalysis. 4. Additional findings as above. ACT 112: Negative or not required by law. Electronically signed by: Mumtaz Juárez M.D. 07/30/2020 7:47 AM
--- NOTE | 2020-07-30 07:58 | XRay Report ---
XR chest 1V portable CLINICAL HISTORY: Preoperative chest COMPARISON STUDY: 01/03/2016 FINDINGS: The cardiac and mediastinal contours are normal. There is no evidence of focal pulmonary co nsolidation. There is no evidence of failure. No pleural effusions are visualized.[ IMPRESSION: No active disease in the chest. ACT 112: Negative or not required by law. Electronically signed by: Carl Ordaz M.D. 07/30/2020 7:57 AM
--- NOTE | 2020-07-30 08:07 | Anesthesiology Consultation ---
Date of Service July 30, 2020 Assessment & Plan (1) Encounter for pre-operative examination: Chart Review Chart Review: Acceptable Risk for Surgery History Surgery Operation Date: 07/30/20 12:00 Proposed Procedures p Laparoscopic Cholecystectomy(Not Applicable) - Miguel Brady MD Height/Weight Height: 5 ft 2 in Weight: 64.1 kg Allergies Allergy/AdvReac Type Severity Reaction Status Date / Time No Known Drug Allergies Allergy Verified 07/29/20 09:41 Medications Home Medications Medication Instructions Recorded Confirmed Last Taken multivitamin 1 tab PO QAM 03/16/19 07/29/20 07/28/20 biotin 1 mg PO QAM 07/20/20 07/29/20 07/27/20 desog-e.estradiol/e.estradiol 1 tab PO QAM 07/20/20 07/29/20 07/28/20 fluticasone propionate [Flonase 1 spray INTRANASAL BID 07/20/20 07/29/20 07/28/20 Allergy Relief] dsgxjzk-smeuzfktnuali-ekdvqyrk 1 tab PO Q6H PRN 07/29/20 07/29/20 Unknown [Excedrin Migraine] calcium carbonate-vitamin D3 1 cap PO DAILY 07/29/20 07/29/20 Unknown [Calcium 600 + D(3)] Active Medications Generic Name Dose Route Start Last Admin Trade Name Freq PRN Reason Stop Dose Admin Fluticasone Propionate 1 sprays 07/30/20 09:00 07/30/20 07:22 Fluticasone Propionate Na Spr 16 Gm Btl NA 08/29/20 08:59 1 sprays BID MULUGETA Administration Cefoxitin Sodium 2,000 mg/ 60 mls @ 100 mls/hr 07/30/20 08:00 07/30/20 08:00 Dextrose IV 08/09/20 07:59 Infused Q6H MULUGETA Infusion Lactated Ringer's 1,000 mls @ 75 mls/hr 07/30/20 03:15 07/30/20 05:03 Lr IV 08/29/20 03:14 75 mls/hr .[id number] MULUGETA Administration Miscellaneous 1 ea 07/30/20 08:00 07/30/20 07:22 Oral Contraceptive~Order Awaiting Action N/A 08/29/20 07:59 Not Given QS MULUGETA Morphine Sulfate 2 mg 07/30/20 03:06 07/30/20 06:03 Morphine Sulfate 2 Mg/Ml Carp IV 08/13/20 03:05 2 mg Q3H PRN Administration Pain Ondansetron HCl 4 mg 07/30/20 03:15 07/30/20 07:21 Ondansetron Inj 2 Mg/Ml 2 Ml Vial IV 08/29/20 03:14 4 mg Q6H MULUGETA Administration NPO Date Last Intake of Fluids: 07/29/20 Time Last Intake of Fluids: 22:00 Date Last Intake of Solids: 07/29/20 Time Last Intake of Solids: 22:00 Past Medical History Medical History Hyperlipidemia No known health problems Past Family History Family History Sister Ovarian cancer Father Pancreatic cancer Other No family history of adverse response to anesthesia Denies family history of Breast cancer Colorectal cancer Past Surgical History Surgical History History of bunionectomy of left great toe History of bunionectomy of right great toe x2 History of placement of ear tubes S/P tonsillectomy and adenoidectomy Social History Smoking Status: Never smoker Hx Alcohol Use: Yes Alcohol type: wine alcohol intake frequency: 0-2 drinks per day Hx Substance Use: No substance use type: does not use Physical Exam Vital Signs Last Vital Signs Temp 36.6 C 07/30/20 04:45 Pulse 85 07/30/20 04:45 Resp 14 07/30/20 04:45 BP 145/85 H 07/30/20 04:45 Pulse Ox 99 07/30/20 04:45 Testing Laboratory Results 07/29/20 22:46 07/29/20 22:46 Urine Color Yellow 07/29/20 23:33 Urine Appearance Cloudy (Clear) A 07/29/20 23:33 Urine pH 7.0 (4.5-7.5) 07/29/20 23:33 Ur Specific [place] 1.016 (1.000-1.030) 07/29/20 23:33 Urine Protein Negative (Negative) 07/29/20 23:33 Urine Glucose (UA) Negative (Negative) 07/29/20 23:33 Urine Ketones Trace (Negative) H 07/29/20 23:33 Urine Nitrite Negative (Negative) 07/29/20 23:33 Ur Leukocyte Esterase 1+ (Negative) H 07/29/20 23:33 Urine WBC (Auto) 5-10 /hpf (0-5) H 07/29/20 23:33 Urine RBC (Auto) 0-4 /hpf (0-4) 07/29/20 23:33 U Hyaline Cast (Auto) 1-5 /lpf (0-5) 07/29/20 23:33 U Epithel Cells (Auto) >30 /lpf (0-5) H 07/29/20 23:33 Urine Bacteria (Auto) 1+ (Negative) H 07/29/20 23:33 07/29/20 23:09 POC Glucose (other) 106 H Electrocardiogram Date: 07/30/20 Findings: + NSR @ (87) and + NSST changes Chest X-Ray Date: 07/30/20 Findings: + NAD
[2020-07-30] MEDS ORDERED: LIDOCAINE/EPINEPHRINE 1% 20 ML VIAL ONE (11:36)
[2020-07-30] MEDS ORDERED: DEXAMETHASONE SOD INJ 4 MG/ML VIAL ONE (11:36)
[2020-07-30] MEDS ORDERED: ONDANSETRON INJ 2 MG/ML 2 ML VIAL ONE (11:36)
[2020-07-30] MEDS ORDERED: MIDAZOLAM HCL 1 MG/ML 2ML VIAL ONE (11:36)
[2020-07-30] MEDS ORDERED: LIDOCAINE HCL 2% 2 ML VIAL/AMP(20MG/ML) INFIL ONE (11:36)
[2020-07-30] MEDS ORDERED: fentaNYL citrate 100 MCG/2 ML VIAL ONE ×2 (11:36→13:08)
[2020-07-30] MEDS ORDERED: PROPOFOL IV EMULSION 10 MG/ML 20 ML VIAL IV ONE (11:36)
[2020-07-30] MEDS ORDERED: ROCURONIUM BROMIDE 10 MG/ML 5 ML VIAL IV ONE (11:36)
[2020-07-30] MEDS ORDERED: KETOROLAC 30 MG/ML VIAL IV PRN (11:41)
[2020-07-30] MEDS ORDERED: PROMETHAZINE HCL 12.5 MG in SODIUM CHLORIDE 0.9% 50 ML IV PRN (11:41)
[2020-07-30] MEDS ORDERED: fentaNYL citrate 100 MCG/2 ML VIAL IV PRN (11:41)
[2020-07-30] MEDS ORDERED: ATROPINE SULFATE 0.1 MG/ML 10ML SYR IV PRN (11:41)
[2020-07-30] MEDS ORDERED: ONDANSETRON INJ 2 MG/ML 2 ML VIAL IV PRN (11:41)
[2020-07-30] MEDS ORDERED: ACETAMINOPHEN 1000 MG/100 ML IV IV ONE (11:42)
[2020-07-30] MEDS ORDERED: GLYCOPYRROLATE 0.2 MG/ML VIAL ONE (12:59)
[2020-07-30] MEDS ORDERED: NEOSTIGMINE METHYLSULFATE 5 MG/5 ML SYR ONE (12:59)
--- NOTE | 2020-07-30 13:17 | Post Operative Brief Note ---
PG Immediate Post Op with CF Date of Surgery July 30, 2020 Pre & Post Diagnosis Operation Date: 07/30/20 12:00 Pre-Op Diagnosis: Cholelithiasis Cholecystitis Post-Op Diagnosis: Cholelithiasis Cholcystitis Incarcerated umbilical hernia I identified the patient and participated in the time-out.: Yes Procedure Operation Date: 07/30/20 12:00 Actual Procedures p Laparoscopic Cholecystectomy With Cholangiogram and Incarcerated Umbilical Hernia Repair(Not Applicable) - Miguel Brady MD Surgeon Miguel Brady MD Spare Hand Carding 0 Estimated Blood Loss 10 Findings Consistent with Post-Op Diagnosis Specimens Specimen Description: A. Incarcerated fat from umbilical area B. Gallbladder and contents C. Lymoh node of Calot
[2020-07-30] MEDS ORDERED: KETOROLAC 30 MG/ML VIAL ONE (13:27)
--- NOTE | 2020-07-30 13:27 | Operative Report ---
PG Post Operative Report Pre & Post Diagnosis Operation Date: 07/30/20 12:00 Pre-Op Diagnosis: Cholelithiasis Cholecystitis Post-Op Diagnosis: Cholelithiasis Cholcystitis Incarcerated umbilical hernia I identified the patient and participated in the time-out.: Yes Procedure Operation Date: 07/30/20 12:00 Actual Procedures p Laparoscopic Cholecystectomy With Cholangiogram and Incarcerated Umbilical Hernia Repair(Not Applicable) - Miguel Brady MD The patient was brought into the operating theater general endotracheal anesthesia supine position the abdomen was prepped Betadine scrub a solution properly draped timeout was had patient was identified the patient had an umbilical hernia that I noticed preoperatively and I was trying to see if we can work around that this was an incarcerated tissue right in the area that we will be working it was more superior to the umbilicus therefore and incision about an inch long transversely above a deep to the subcutaneous tissue and 100 reduce the defect and the incarcerated tissue which was fatty tissue we resected part of it and the opening itself was probably about three-quarter centimeter most I used 0 Vicryl suture stay sutures to elevate the fascia and on direct visualization we placed a 5 mm trocar followed by CO2 point of interest back to no injury identified on direct visualization we placed a 5 mm epigastric and 2 5 mm subcostal ports with preemptive local analgesic gallbladder was identified it was tense acutely inflamed therefore we control it with a lateral trocar and used a aspirate needle to deflate as we can be able to grasp it. At this point we elevated up and massive edema was appreciated throughout the whole wall we used blunt dissection mostly to go down towards the neck of the gallbladder were easily identified lymph node of [place] which a little prominent normal we actually took it out and then were able to get around to create a window around the cystic duct which appeared to be larger than normal. We at this point I clipped it proximally at the takeoff from neck of the gallbladder with a 5 m clip and that was suffice to control it for a #4 urethral catheter transversing abdominal wall was positioned cystic duct x-rays were taken which showed free flow into the duodenum there was no obstruction. This Cholangiocath was then removed the cystic duct was securely doubly clipped with 5mm clips most of the enlarged aspect of the cystic duct was due to the inflammation around the area although the opening cystic duct itself was quite small the artery anterior and posterior branches were is identified doubly clipped proximally and distally and divided gallbladder was moved in antegrade fashion using mostly blunt dissection due to the amount of edema cautery was used to control some oozers gallbladder was then once freed from the liver placed in an Endopouch and taken out intact through the epigastric port patient has significant amount of different bilirubinate and a cholesterol type of stones. This point the subhepatic treatment area was checked for stasis appears satisfactory prior to coming out from the abdomen I placed iliac camera right upper quadrant lateral port to visualize the umbilical opening there were no adhesions identified in that area we then then checked and suctioned out the subhepatic suprahepatic area suffic ient and there was hemostasis was excellent I did not drain the area. We then individual trochars were taken on direct visualization and then I put fascial stitch of 0 Vicryl for the umbilical area and interrupted x3 and the fascial stitch of the epigastric area times one 4-0 Monocryl Steri-Strips applied procedure was tolerated well by the patient estimated blood loss approximately 10 cc the patient was taken recovery in good condition addendum 18 after the procedure I talked her Trung at [id number] Surgeon Miguel Brady MD Packer Denture 0 Estimated Blood Loss 10 Findings Consistent with Post-Op Diagnosis Specimens gallbladder and stones incarcerated umbilical tisue lymph node of [place] Description of Procedure merda I attest to the content of the Intraoperative Record and any orders documented therein. Any exceptions are noted below.
--- NOTE | 2020-07-30 13:54 | Fluoroscopy Report ---
INTRAOPERATIVE CHOLANGIOGRAM CLINICAL HISTORY: Cholecystectomy. Fluoroscopy time: 2 seconds. FINDINGS: A single spot fluoroscopic view of the right upper quadrant is correlated with abdominal ul trasound dated 07/30/2020. The gallbladder is surgically absent. There is smooth contrast opacificatio n of the common bile duct which is normal in caliber. There are no intraluminal filling defects to [place] ggest choledocholithiasis, and there is free spillage of contrast into the duodenum. There is no intr ahepatic biliary ductal dilatation. IMPRESSION: Intraoperative cholangiogram image as above with no evidence of choledocholithiasis. Electronically signed by: Mumtaz Juárez M.D. 07/30/2020 1:53 PM
--- NOTE | 2020-07-30 14:00 | Anesthesiology Progress Note ---
Date of Service July 30, 2020 Anesthesia Post Procedure Vital Signs Vital Signs: Temp Pulse Pulse Pulse Resp BP BP 07/30/20 13:50 76 19 134/80 07/30/20 13:40 75 18 131/79 07/30/20 13:31 36.3 C L 96 H 25 H 144/83 H 07/30/20 08:16 36.8 C 77 16 132/82 07/30/20 04:45 36.6 C 85 14 145/85 H 07/30/20 04:06 84 18 160/88 H 07/30/20 03:30 85 18 145/93 H 07/30/20 03:00 78 18 149/96 H 07/30/20 02:30 91 H 16 156/96 H 07/30/20 02:00 85 16 139/97 07/30/20 01:47 81 16 156/92 H 07/30/20 01:46 75 18 156/92 H 07/30/20 00:07 84 20 154/104 H 07/29/20 23:23 86 20 157/97 H 07/29/20 21:56 07/29/20 21:45 36.3 C L 88 20 158/99 H Pulse Ox 07/30/20 13:50 98 07/30/20 13:40 100 07/30/20 13:31 100 07/30/20 08:16 98 07/30/20 04:45 99 07/30/20 04:06 100 07/30/20 03:30 97 07/30/20 03:00 96 07/30/20 02:30 98 07/30/20 02:00 97 07/30/20 01:47 96 07/30/20 01:46 96 07/30/20 00:07 98 07/29/20 23:23 100 07/29/20 21:56 99 07/29/20 21:45 98 Pain Intensity Abdomen: Pain Intensity: 2 Transfer of Care Handoff Completed per policy Notes Mental Status: alert / awake / arousable Patient Amnestic to Procedure: Yes Nausea / Vomiting: adequately controlled Pain: adequately controlled Airway Patency, RR, SpO2: stable & adequate BP & HR: stable & adequate Hydration State: stable & adequate Anesthetic Complications: no major complications apparent
[2020-07-30] MEDS: oxyCODONE/ACETAMINOPHEN 5mg/325mg TAB PO PRN ×2 (17:03→20:43)
[2020-07-31] MEDS: ONDANSETRON INJ 2 MG/ML 2 ML VIAL IV SCH (01:46)
[2020-07-31] MEDS: cefOXitin 2,000 MG in DEXTROSE 5% 50 ML IV SCH (01:46)
--- NOTE | 2020-07-31 05:05 | Surgery Progress Note ---
Date of Service July 31, 2020 Assessment & Plan (1) Acute cholecystitis: Intraoperative findings was discussed with the patient At this point the patient can be discharged instructed her to come back to our office next week follow-up for an appointment also instructed her regarding her activity no driving for about 3 days and not lifting anything heavier than 10 pounds for approximately 3 days Also mention to her that she may have some looser more frequent stools for the next 2 or 3 weeks and that should subside She may shower and can take Motrin or Advil or Aleve for pain I do not think she needs much more than that All questions were answered Present on Admission?: Yes Admission and Anticipated Discharge Date Admission Date: July 30, 2020 Subjective Patient is awake no distress using the iPad Denies any nausea tolerated liquids after surgery yesterday minimal abdominal discomfort Physical Exam Physical Exam: As stated she is alert coherent comfortable The abdomen is soft distended as with expected no localized tenderness Results & Data ([facility]) Vital Signs (Past 12 Hours) Vital Signs Temp Pulse Resp BP Pulse Ox 07/31/20 03:53 36.8 C 87 16 129/73 96 07/30/20 21:59 36.8 C 70 16 117/70 95 07/30/20 19:48 36.7 C 82 16 133/71 96 07/30/20 18:19 36.7 C 79 18 117/75 96 PG Care Time/CCT Total # of Minutes Spent Total Time Spent with Patient: Total time spent is greater than 50% in coordination of care (as documented) at patient's floor/unit and/or counseling patient: Coding Level of Care Code None Diagnoses Acute cholecystitis K81.0
--- NOTE | 2020-07-31 06:18 | Electrocardiogram Report ---
Test Reason : Blood Pressure : / mmHG Vent. Rate : 087 BPM Atrial Rate : 087 BPM P-R Int : 146 ms QRS Dur : 080 ms QT Int : 390 ms P-R-T Axes : 037 033 007 degrees QTc Int : 469 ms Normal sinus rhythm Nonspecific ST abnormality Abnormal ECG When compared with ECG of 03-JAN-2016 10:08, No significant change Confirmed by Jose Raul Burger ([id number]) on 07/31/2020 6:18:33 AM Referred By: Micheal Lopez Confirmed By:Jose Raul Burger
--- NOTE | 2020-08-02 00:43 | Discharge Summary (DS) ---
ADMISSION DIAGNOSIS: Cholelithiasis. DISCHARGE DIAGNOSIS: Cholelithiasis. HOSPITAL COURSE: This is a 50-year-old female who presented to the Emergency Department secondary to right upper quadrant abdominal pain for approximately 2 hours after eating her evening meal. The patient had a CT scan of her abdomen as well as ultrasound that revealed gallstones. It was felt that this was likely the culprit for her abdominal pain. Because of this, the patient was taken to the operating room on 07/30/2020 for laparoscopic cholecystectomy. Following this procedure, the patient was tolerating oral intake and was deemed stable for discharge home after an uneventful hospital course. She was instructed on appropriate wound care, diet, and activity, and will follow up with Dr. Brady in the office in approximately 1-2 weeks.
== END 2020-07-31 07:53 | disposition home or self-care (01) ==
LOC: ED 21:44 → 3E 21:44